=== PATIENT | female | born 1950 | race Caucasian/White ===

== ENCOUNTER 2022-08-10 10:36 | Day surgery (SDC) | payer MEDICARE ==
[2022-08-03 15:15] LABS: BASOPHILS % (AUTO) 0.6 % (0-1); EOSINOPHILS # (AUTO) 0.3 X10'3 (0-0.9); EOSINOPHILS % (AUTO) 3.6 % (0-6); LYMPHOCYTES # (AUTO) 2.8 X10'3 (1.1-4.8); LYMPHOCYTES % (AUTO) 36.1 % (21-51); MEAN CORPUSCULAR HEMOGLOBIN 31.6 PG (27.0-31.0); MEAN CORPUSCULAR VOLUME 92.7 FL (78-98); MEAN PLATELET VOLUME 7.2 FL (7.4-10.4); MONOCYTES # (AUTO) 0.9 X10'3 (0-0.9); MONOCYTES % (AUTO) 11.2 % (2-12); NEUTROPHILS # (AUTO) 3.7 X10'3 (1.8-7.7); NEUTROPHILS % (AUTO) 48.5 % (42-75); PRE OP HEMATOCRIT 37.4 % (35.0-45.0); PRE OP HEMOGLOBIN 12.7 g/dL (12.0-16.0); PRE OP PLATELET COUNT 250 X10'3 (140-440); RED BLOOD COUNT 4.04 X10'6 (4.20-5.60); RED CELL DISTRIBUTION WIDTH 13.8 % (11.5-14.5)
[2022-08-03 15:22] LABS: ALBUMIN/GLOBULIN RATIO 1.3 (1.1-1.5); ALKALINE PHOSPHATASE 71 IU/L (46-116); BLOOD UREA NITROGEN 21 MG/DL (7-18); CALCIUM 8.7 MG/DL (8.5-10.1); CHLORIDE 101 MMOL/L (99-107); PRE OP ALT 34 U/L (30-65); PRE OP ANION GAP 8 (8-16); PRE OP AST 20 U/L (10-37); PRE OP BILIRUB, TOTAL 0.4 MG/DL (0.0-1.0); PRE OP GLUCOSE 93 MG/DL (70-104); PRE OP POTASSIUM 4.6 MMOL/L (3.4-5.1); PRE OP SODIUM 139 MMOL/L (135-145); TOTAL CARBON DIOXIDE 29.8 MMOL/L (24-32); TOTAL PROTEIN 7.2 G/DL (6.4-8.2); eGFR 55 ML/MIN
[~2022-08-10] VITALS: Ht 160 cm; Wt 74.3 kg
[~2022-08-10 10:36] MED LIST: ACET-2971 PO; ACET-812 PO; ATOR-2 PO; CA C1TAB89 PO; DOCUMENT DATE & TIME OF BETA-BLOCKER PO ONE; GABA600T13 PO; LOSA25TA96 PO; MULT-1085 PO; OMEP20CA16 PO; UBID300C PO; clindamycin-Cleocin 900mg/D5W 50 ML IV ONE; famotidine 20mg tablet PO ONE; ringers solution, lacted 1,000 ML IV SCH
[2022-08-10 12:15] VITALS: BP 177/77
[2022-08-10] MEDS ORDERED: LIDOcaine 0.5% (5mg/ml) 50ml vial ONE (14:42)
[2022-08-10] MEDS ORDERED: BUPIVAcaine/PF 2.5mg/ml (0.25%) 10ml vial ONE (14:42)
[2022-08-10] MEDS ORDERED: fentaNYL/PF 50MCG/1 ML 2ML syringe ONE (14:46)
[2022-08-10] MEDS ORDERED: ringers solution, lacted 1,000 ML IV SCH (14:50)
[2022-08-10] MEDS ORDERED: acetaminophen 1,000mg/100ml IV 100 ML IV PRN (14:50)
[2022-08-10] MEDS ORDERED: ondansetron/PF 4mg/2ml inj IV PRN (14:50)
[2022-08-10] MEDS ORDERED: meperidine/PF 25mg/ml syringe IV PRN (14:50)
[2022-08-10] MEDS ORDERED: proCHLORperazine 10 MG/2 ml inj IV PRN (14:50)
[2022-08-10] MEDS ORDERED: morphine 2 MG/ML inj. syringe IV PRN (14:50)
[2022-08-10] MEDS ORDERED: fentaNYL/PF 50MCG/1 ML 2ML syringe IV PRN ×2 (14:50)
[2022-08-10] MEDS ORDERED: morphine 4 MG/ML inj SYRINge IV PRN (14:50)
[2022-08-10] MEDS ORDERED: propofol inj 20 ML IV ONE (15:11)
[2022-08-10] MEDS ORDERED: midazolam 1 mg/ML 2ml injection ONE (15:11)
[2022-08-10 15:15] VITALS: BP 151/81
--- NOTE | 2022-08-10 15:15 | NUR ---
Received from OR via [facility] , accompanied by Anesthesiologist DR GILL and report given by Anesthesiolgist. PT PRESNTS WITH 20G RIGHT AC, DRESSING ON LEFT WRIST CDI, VSS. Addendum: 08/10/22 at 1524 by Darcy Martinez RN, RN Amended: Links added.
[2022-08-10 15:20] VITALS: BP 151/81
[2022-08-10 15:30] VITALS: BP 148/82
[2022-08-10 15:40] VITALS: BP 149/85
[2022-08-10 15:55] VITALS: BP 149/85
--- NOTE | 2022-08-10 15:55 | NUR ---
ALL DISCHARGE CRITERIA HAS BEEN MET. VSS, PAIN AT A TOLERABLE LEVEL, VOIDING AND ABLE TO SAFELY AMBULATE AND TRANSFER SELF. IV TAKEN OUT WITHOUT ANY COMPLICATIONS. ALL DISCHARGE INSTRUCTIONS COVERED WITH PATIENT AND ALL QUESTIONS ANSWERED. PATIENT TAKEN OUT VIA WHEELCHAIR TO PERSONAL VEHICLE WHERE FAMILY/FRIEND DROVE PATIENT HOME. Addendum: 08/10/22 at 1605 by Darcy Martinez RN, RN Amended: Links added.
== END 2022-08-10 15:55 | disposition home or self-care (01) ==
LOC: PAS 10:36
PROVIDERS: ATTEND Orthopaedic Surgery Hand Surgery
DX: G56.02 Carpal tunnel syndrome, left upper limb (principal); K21.9 Gastro-esophageal reflux disease without esophagitis; Z79.899 Other long term (current) drug therapy; Z98.890 Other specified postprocedural states; Z20.822 Contact with and (suspected) exposure to COVID-19; Z90.710 Acquired absence of both cervix and uterus; Z88.6 Allergy status to analgesic agent; Z88.2 Allergy status to sulfonamides; Z88.0 Allergy status to penicillin
CPT/HCPCS: 36415; 64721; 80053; 82948; 85025; 87811; 93005; J2250; J2704; J3010; J3490; J7030; J7120; Z7506; Z7512; A4215

== ENCOUNTER 2022-09-21 05:24 | Day surgery (SDC) | payer MEDICARE ==
[2022-09-14 15:06] LABS: BASOPHILS % (AUTO) 0.2 % (0-1); EOSINOPHILS # (AUTO) 0.2 X10'3 (0-0.9); EOSINOPHILS % (AUTO) 2.7 % (0-6); LYMPHOCYTES # (AUTO) 2.4 X10'3 (1.1-4.8); MEAN CORPUSCULAR HEMOGLOBIN 31.2 PG (27.0-31.0); MEAN CORPUSCULAR HGB CONC 33.6 g/dL (33.0-36.5); MEAN CORPUSCULAR VOLUME 93.1 FL (78-98); MEAN PLATELET VOLUME 7.6 FL (7.4-10.4); MONOCYTES # (AUTO) 0.7 X10'3 (0-0.9); MONOCYTES % (AUTO) 9.4 % (2-12); NEUTROPHILS # (AUTO) 4.2 X10'3 (1.8-7.7); NEUTROPHILS % (AUTO) 55.7 % (42-75); PRE OP HEMATOCRIT 39.7 % (35.0-45.0); PRE OP HEMOGLOBIN 13.3 g/dL (12.0-16.0); PRE OP PLATELET COUNT 262 X10'3 (140-440); RED BLOOD COUNT 4.26 X10'6 (4.20-5.60); RED CELL DISTRIBUTION WIDTH 13.7 % (11.5-14.5)
[2022-09-14 15:16] LABS: ALBUMIN 3.8 G/DL (3.4-5.0); ALBUMIN/GLOBULIN RATIO 1.1 (1.1-1.5); ALKALINE PHOSPHATASE 77 IU/L (46-116); BLOOD UREA NITROGEN 20 MG/DL (7-18); BUN/CREATININE RATIO 22.5 (6.6-38.0); CALCIUM 8.8 MG/DL (8.5-10.1); CHLORIDE 105 MMOL/L (99-107); CREATININE 0.89 MG/DL (0.40-0.90); PRE OP ALT 40 U/L (30-65); PRE OP ANION GAP 8 (8-16); PRE OP AST 24 U/L (10-37); PRE OP BILIRUB, TOTAL 0.3 MG/DL (0.0-1.0); PRE OP GLUCOSE 95 MG/DL (70-104); PRE OP POTASSIUM 4.1 MMOL/L (3.4-5.1); PRE OP SODIUM 142 MMOL/L (135-145); TOTAL CARBON DIOXIDE 29.1 MMOL/L (24-32); TOTAL PROTEIN 7.3 G/DL (6.4-8.2); eGFR 62 ML/MIN
[~2022-09-21] VITALS: Ht 160 cm; Wt 75.6 kg
[2022-09-21] VITALS (9 sets, daily range): BP systolic 119–135; BP diastolic 73–86
[~2022-09-21 05:24] MED LIST changes: -DOCUMENT DATE & TIME OF BETA-BLOCKER PO ONE; -clindamycin-Cleocin 900mg/D5W 50 ML IV ONE; -famotidine 20mg tablet PO ONE
[2022-09-21] MEDS ORDERED: famotidine 20mg tablet PO ONE (05:30)
[2022-09-21] MEDS ORDERED: clindamycin-Cleocin 900mg/D5W 50 ML IV ONE (05:30)
[2022-09-21] MEDS ORDERED: clindamycin 600mg/D5W 50ml 50 ML IV ONE (06:20)
[2022-09-21] MEDS ORDERED: LIDOcaine 1% 30ml preserv. free vial ONE (07:16)
[2022-09-21] MEDS ORDERED: BUPIVAcaine/PF 2.5 mg/ml (0.25%) 30ml vial ONE (07:17)
[2022-09-21] MEDS ORDERED: fentaNYL/PF 50MCG/1 ML 2ML syringe ONE (07:38)
[2022-09-21] MEDS ORDERED: midazolam 1 mg/ML 2ml injection ONE (07:38)
[2022-09-21] MEDS ORDERED: propofol inj 20 ML IV ONE (07:50)
[2022-09-21] MEDS ORDERED: ketorolac trometh. 30mg/ml inj. ONE (07:50)
[2022-09-21] MEDS ORDERED: 0.9 % SODIUM CHLORIDE 10 ML VIAL ONE (07:50)
--- NOTE | 2022-09-21 08:07 | NUR ---
Received from OR via [facility], accompanied by Anesthesiologist DR BRANDT and report given by Anesthesiolgist. PT PRESENT WITH PIV 20G LEFT HAND, WRAP ON RIGHT HAND CDI, VSS.
--- NOTE | 2022-09-21 09:07 | NUR ---
I HAVE REVIEWED D/C INSTRUCTIONS WITH PATIENT AND THEY HAVE VERBALIZED UNDERSTANDING OF INSTRUCTIONS. PATIENT D/C HOME WITH ALL BELONGINGS AND FAMILY GAVE TRANSPORT Addendum: 09/21/22 at 0914 by Darcy Martinez RN, RN Amended: Links added.
== END 2022-09-21 09:07 | disposition home or self-care (01) ==
LOC: PAS 05:24
PROVIDERS: ATTEND Orthopaedic Surgery Hand Surgery
DX: G56.01 Carpal tunnel syndrome, right upper limb (principal); K21.9 Gastro-esophageal reflux disease without esophagitis; M19.90 Unspecified osteoarthritis, unspecified site; Z88.6 Allergy status to analgesic agent; Z88.2 Allergy status to sulfonamides; Z88.0 Allergy status to penicillin; F41.9 Anxiety disorder, unspecified; Z79.899 Other long term (current) drug therapy; Z90.710 Acquired absence of both cervix and uterus; Z72.89 Other problems related to lifestyle; Z98.890 Other specified postprocedural states
CPT/HCPCS: 36415; 64721; 80053; 82948; 85025; A6258; J1885; J2250; J2704; J3010; J3490; J7030; J7120; Z7506; Z7512; A4215

== ENCOUNTER → 2025-01-26 | Outpatient (CLI) | payer MEDICARE ==
[~2025-01-26] MED LIST changes: +GABA-1405 PO; -GABA600T13 PO; +LOSA-415 PO; -LOSA25TA96 PO; -UBID300C PO; +UBID300C3 PO; -ringers solution, lacted 1,000 ML IV SCH
== END | disposition home or self-care (01) ==
LOC: MRI02 08:15
PROVIDERS: ATTEND Family Medicine Sports Medicine
DX: M47.26 Other spondylosis with radiculopathy, lumbar region (principal); M54.50 Low back pain, unspecified; M77.9 Enthesopathy, unspecified; M53.3 Sacrococcygeal disorders, not elsewhere classified; M48.07 Spinal stenosis, lumbosacral region; M51.16 Intervertebral disc disorders with radiculopathy, lumbar region; M47.814 Spondylosis without myelopathy or radiculopathy, thoracic region; M48.04 Spinal stenosis, thoracic region; M51.34 Other intervertebral disc degeneration, thoracic region
CPT/HCPCS: 72148